=== PATIENT | male | born 1940 | race Caucasian/White ===

== ENCOUNTER → 2017-04-13 | Outpatient (CLI) | payer MEDICARE, MEDICAID ==
[2017-04-13 10:36] LABS: CREATININE 1.7 mg/dL (0.6-1.3)
== END | disposition disaster alternative care site (69) ==
LOC: GRAD 09:42 → GLAB 10:00
PROVIDERS: Urology
DX: N28.89 Other specified disorders of kidney and ureter (principal); I71.4 Abdominal aortic aneurysm, without rupture